=== PATIENT | female | born 2000 | race Hispanic/Latino ===

== ENCOUNTER 2024-03-12 10:50 | Emergency (ER) | payer SELFPAY ==
[2024-03-12] MEDS ORDERED: FAMOTIDINE 20 MG TAB ONE (11:13)
[2024-03-12] MEDS ORDERED: predniSONE 20 MG TAB ONE (11:13)
[2024-03-12] MEDS ORDERED: DIPHENHYDRAMINE 25 MG TAB/CAP ONE (11:13)
--- NOTE | 2024-03-12 11:19 | ER ---
Nurse's Notes [facility] Name: Nohemi Brooks Age: 23 yrs Sex: Female : 2000 Arrival Date: 03/12/2024 Time: 10:50 Bed 12 Private MD: Diagnosis: Insect bites Presentation: 03/12 11:00 Chief complaint: Patient states: WAKES UP WITH RED BUMPS ALL OVER ARMS AND TORSO. X 3 db DAYS. STATES HAS BEEN GETTING BIT IN HER SLEEP. RED AND ITCHY. NAD. Coronavirus screen: Client denies travel out of the [place] in the last 14 days. At this time, the client does not indicate any symptoms associated with coronavirus-19. Ebola Screen: Patient negative for fever greater than or equal to 101.5 degrees Fahrenheit, and additional compatible Ebola Virus Disease symptoms Patient denies exposure to infectious person. Patient denies travel to an Ebola-affected area in the 21 days before illness onset. No symptoms or risks identified at this time. Initial Sepsis Screen: Does the patient meet any 2 criteria? No. Patient's initial sepsis screen is negative. Does the patient have a suspected source of infection? No. Patient's initial sepsis screen is negative. Risk Assessment: Do you want to hurt yourself or someone else? Patient reports no desire to harm self or others. Onset of symptoms was March 09, 2024. 11:00 Method Of Arrival: Ambulatory db 11:00 Acuity: MARY ELLEN 4 db Triage Assessment: 11:02 Bite description: bite sustained to abdomen, right arm and left arm by BUG IN SLEEP, db animal information: vaccination(s) is not applicable. General: Appears in no apparent distress. comfortable, Behavior is calm, cooperative. Pain: Denies pain. Neuro: Level of Consciousness is awake, alert, obeys commands, Oriented to person, place, time, situation. Respiratory: Airway is patent Respiratory effort is even, unlabored, Respiratory pattern is regular, symmetrical. Derm: Rash noted that is red, raised. 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 - Infectious Disease History:: Denies. - Social history:: Smoking status: Patient denies any tobacco usage or history of. Screenin:04 [facility] ED Fall Risk Assessment (Adult) History of falling in the last 3 months, db including since admission No falls in past 3 months (0 pts) Confusion or Disorientation No (0 pts) Intoxicated or Sedated No (0 pts) Impaired Gait No (0 pts) Mobility Assist Device Used No (0 pt) Altered Elimination No (0 pt) Score/Fall Risk Level 0 - 2 = Low Risk Oriented to surroundings, Maintained a safe environment. Abuse screen: Denies threats or abuse. Denies injuries from another. Nutritional screening: No deficits noted. Tuberculosis screening: No symptoms or risk factors identified. Assessment: 11:04 Reassessment: Patient appears in no apparent distress at this time. Patient and/or db family updated on plan of care and expected duration. Pain level reassessed. Patient is alert, oriented x 3, equal unlabored respirations, skin warm/dry/pink. SEE TRIAGE FOR INITIAL ASSESSMENT. Derm: Skin is intact, Skin is normal, red. Vital Signs: 11:00 BP 166 / 104; Pulse 71; Resp 16; Temp 98.8(O); Pulse Ox 100% ; Weight 145.15 kg; Height db 5 ft. 5 in. ; 11:00 Body Mass Index 53.25 (145.15 kg, 165.1 cm) db ED Course: 10:52 Patient arrived in ED. ra3 10:58 [facility] kb 10:58 Maxi Douglass MD is Attending Physician. kb 11:02 Triage completed. db 11:02 Arm band placed on Patient placed in an exam room. db 11:04 Bobbi Tang, RN is Primary Nurse. db 11:04 Patient has correct armband on for positive identification. Bed in low position. Call db light in reach. Side rails up X 1. Pulse ox on. NIBP on. 11:29 Provided Education on: medication, follow up. hb 11:29 No provider procedures requiring assistance completed. Patient did not have IV access hb during this emergency room visit. Administered Medications: 11:15 Drug: predniSONE PO 40 mg PO once Route: PO; db 11:15 Drug: Famotidine PO 20 mg PO once Route: PO; db 11:15 Drug: diphenhydrAMINE PO 25 mg PO once Route: PO; db Medication: 11:04 VIS not applicable for this client. db Outcome: 11:19 Discharge ordered by . kb 11:29 Discharged to home ambulatory, hb 11:29 Condition: stable 11:29 Discharge instructions given to patient, Instructed on discharge instructions, follow up and referral plans. medication usage, Demonstrated understanding of instructions, follow-up care, medications, Prescriptions given X 2, 11:30 Patient left the ED. Signatures: Sushila Gould, ASSEMBLY LOADER-C ASSEMBLY LOADER-CkMassiel Moya RN RN Bobbi Tang RN RN db Hillary Kelly ra3 Corrections: (The following items were deleted from the chart) 11:02 11:00 Onset of symptoms was March 12, 2024 db db
--- NOTE | 2024-03-12 11:19 | EDPHYS ---
Physician Documentation [facility] Name: Nohemi Brooks Age: 23 yrs Sex: Female : 2000 Arrival Date: 03/12/2024 Time: 10:50 Bed 12 Private MD: ED Physician Maxi Douglass HPI: 03/12 11:27 This 23 yrs old Female presents to ER via Ambulatory with complaints of Insect kb Bite. 11:27 Pt is a 23 year old female who presents for red whelps that started 3 days ago. Reports kb itching to areas. States she has had more spots when she wakes from sleep. . 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 - Infectious Disease History:: Denies. - Social history:: Smoking status: Patient denies any tobacco usage or history of. ROS: 11:24 Constitutional: As per HPI kb Exam: 11:24 Constitutional: This is a well developed, well nourished patient who is awake, alert, kb and in no acute distress. Head/Face: Normocephalic, atraumatic. ENT: Moist Mucous membranes Cardiovascular: Regular rate Respiratory: Respirations even and unlabored. No increased work of breathing. Talking in full sentences Abdomen/GI: Soft, non-tender. No distention MS/ Extremity: Pulses equal, no cyanosis. Neurovascular intact. Full, normal range of motion. Neuro: Awake and alert, GCS 15, oriented to person, place, time, and situation. Moves all extremities. Normal gait. 11:24 Skin: small erythematous whelps to upper and lower extremities as well as a few on neck. Appear to be insect bites, but pt denies being outside or having bedbugs that she knows of. . Vital Signs: 11:00 BP 166 / 104; Pulse 71; Resp 16; Temp 98.8(O); Pulse Ox 100% ; Weight 145.15 kg; Height db 5 ft. 5 in. ; 11:00 Body Mass Index 53.25 (145.15 kg, 165.1 cm) db MDM: 10:58 Patient medically screened. kb 11:24 Differential diagnosis: urticaria, insect bites, abscess. Data reviewed: vital signs, kb nurses notes. Counseling: I had a detailed discussion with the patient and/or guardian regarding the historical points, exam findings, and any diagnostic results supporting the discharge/admit diagnosis, the need for outpatient follow up, a family practitioner, to return to the emergency department if symptoms worsen or persist or if there are any questions or concerns that arise at home. Administered Medications: 11:15 Drug: predniSONE PO 40 mg PO once Route: PO; db 11:15 Drug: Famotidine PO 20 mg PO once Route: PO; db 11:15 Drug: diphenhydrAMINE PO 25 mg PO once Route: PO; db Disposition: 12:02 Co-signature as Attending Physician, Maxi Douglass MD I reviewed the patient's care rt provided by the Advanced Practice Provider and agree with the diagnosis and treatment plan. Disposition Summary: 03/12/24 11:19 Discharge Ordered Notes: Location: Home kb Condition: Stable kb Diagnosis - Insect bites kb Followup: kb - With: Emergency Department - When: As needed - Reason: Worsening of condition Followup: kb - With: Private Physician - When: 2 - 3 days - Reason: Recheck today's complaints, Continuance of care, Re-evaluation by your physician Discharge Instructions: - Discharge Summary Sheet kb - Insect Bite, Adult, [id number] kb Forms: - Medication Reconciliation Form kb - Antibiotic Education kb - Prescription Opioid Use kb - Patient Portal Instructions kb - Leadership Thank You Letter kb Prescriptions: - Pepcid 20 mg Oral Tablet - take 1 tablet ORAL route every 12 hours for 5 days; 10 tablet; Refills: 0, kb Product Selection Permitted - Prednisone 20 mg Oral Tablet - take 1 tablet ORAL route once daily for 5 days; 5 tablet; Refills: 0, Product kb Selection Permitted Signatures: Sushila Gould FNP-C FNP-Ckb Benton, Danielle, RN RN Maxi Godinez MD MD rt
[2024-03-12 11:36] VITALS: BP 166/104; TEMP 98.8; O2SAT 100
== END 2024-03-12 11:30 | disposition home or self-care (01) ==
LOC: ER 10:50
DX: S80.862A Insect bite (nonvenomous), left lower leg, initial encounter (principal); S80.861A Insect bite (nonvenomous), right lower leg, initial encounter
CPT/HCPCS: 99283; J7512